=== PATIENT | female | born 1990 | race Caucasian/White ===

== ENCOUNTER 2023-06-16 07:53 | Outpatient (CLI) | payer BC, OTHER | END 2023-06-16 07:54 | disposition home or self-care (01) | LOC: NM 07:53 | PROVIDERS: ATTEND Physician Assistant Medical | DX: K58.0 Irritable bowel syndrome with diarrhea (principal); R11.2 Nausea with vomiting, unspecified; R10.13 Epigastric pain | CPT/HCPCS: 78264; A9541 ==